=== PATIENT | female | born 1965 ===

== ENCOUNTER 2021-10-05 03:09 | Day surgery (SDC) | payer BC, SELFPAY ==
[2021-09-25 14:04] VITALS: BMI 32.8
[2021-10-05 11:30] VITALS: BP 125/73; PULSE 84; RESP 18; TEMP 37.6; O2SAT 99; BMI 32.7
--- NOTE | 2021-10-05 11:37 | P.PNAN_ITS ---
Anes - Initial Pre Proc Eval Procedure: Operation Date: 10/05/21 13:30 Proposed Procedures p Screening Colonoscopy - Olaf Coombs MD Date/Time: 10/05/21 11:37 Surgeon: Olaf Coombs MD Pre Op Diagnosis: neoplasm screening Patient Data Age: 56 Gender: F Height: 1.66 m Weight: 91 kg Allergies Allergy/AdvReac Type Severity Reaction Status Date / Time venom-wasp Allergy Unknown hornet Verified 09/25/21 13:59 stings acetaminophen [From Vicodin] AdvReac Mild Agitated Verified 09/25/21 14:00 hydrocodone [From Vicodin] AdvReac Mild Agitated Verified 09/25/21 14:00 Home Medications Medication Instructions Recorded Confirmed Type eye lubricant combination no.1 1 drp OPHTHALMIC (EYE) DAILY 09/25/21 09/25/21 History [FreshKote] gzehqjuc-rnn-jjif-vitamin K [Adult 1 tablet PO DAILY 09/25/21 09/25/21 History Multivitamin with Iron] omeprazole 20 mg PO DAILY 09/25/21 09/25/21 History timolol maleate 1 drp OPHTHALMIC (EYE) DAILY 09/25/21 09/25/21 History travoprost (benzalkonium) 1 drp OPHTHALMIC (EYE) DAILY 09/25/21 09/25/21 History [Travatan (with benzalkonium)] Patient hx anesthesia problems: none Family hx anesthesia problems: none Results Review: All pre-operative results and documents have been reviewed as part of the pre-operative evaluation. [facility] Past Medical History Medical History (Updated 10/05/21 @ 11:38 by Tomi Almendarez MD) Dysphagia GERD (gastroesophageal reflux disease) Obesity Social History Social History Smoking status: Never smoker Alcohol intake: never Substance use: never Substance use type: does not use Living arrangements: with family Spiritual care concerns: No Anes - Eval Final PreProcedure Day of Procedure 10/05/21 11:37 Patient weight: obese Heart: regular rate and rhythm Lungs: clear to auscultation Airway: Mallampati scale class II Neurological: alert and oriented Last oral intake: >/= 8 hours ASA classification: II Emergent: no Anesthetic plan: proceed Anesthesia type and monitoring: general GIVS and standard monitoring Results Review: All pre-operative results and documents have been reviewed as part of the pre-operative evaluation. Informed Consent: The patient's anesthetic plan and its attendant risks and benefits were discussed with the patient/family/POA. Questions were solicited and answers provided to the satisfaction of the patient/family/POA.
[2021-10-05] MEDS: LACTATED RINGERS 1,000 ML 150 ML IV CONT (11:55)
--- NOTE | 2021-10-05 11:59 | PM.HPGS ---
History of Present Illness History of Present Illness Consent: Risks, benefits, and alternatives have been discussed and questions answered. Patient agrees to proceed with procedure. Chief complaint: neoplasm screening Narrative: Divya Szymanski is a 56 year old female here for first screening colonoscopy Review of Systems Constitutional: Constitutional: Denies headache(s) and Denies weakness Eyes: Eyes: Denies blurry vision ENT: Reports Normal hearing present, Denies headache(s) and Denies neck pain Cardiovascular: Cardiovascular: Denies chest pain and Denies dyspnea Respiratory: Respiratory: Denies dyspnea Gastrointestinal: Gastrointestinal: Reports no additional gastrointestinal complaints Genitourinary: Genitourinary: Denies dysuria Musculoskeletal: Musculoskeletal: Denies neck pain Integumentary/Breasts: Skin/Breast: Denies dry skin Neurologic: Reports Normal hearing present, Denies headache(s) and Denies weakness Psychiatric: Psychiatric: Denies anxiety Endocrine: Endocrine: Denies change in body appearance Hematologic/Lymphatic: Hematologic/Lymphatic: Denies easy bleeding Allergic/Immunologic: Allergic/Immunologic: Denies urticaria PMF Past Medical History Medical History (Updated 10/05/21 @ 12:00 by Olaf Coombs MD) Colon cancer screening Dysphagia GERD (gastroesophageal reflux disease) Obesity Social History Social History Smoking status: Never smoker Alcohol intake: never Substance use: never Substance use type: does not use Living arrangements: with family Spiritual care concerns: No Meds Home Medications and Allergies Home Medications Medication Instructions Recorded Confirmed Type eye lubricant combination no.1 1 drp OPHTHALMIC (EYE) DAILY 09/25/21 10/05/21 History [FreshKote] erjdjfkn-beg-qtwi-vitamin K [Adult 1 tablet PO DAILY 09/25/21 10/05/21 History Multivitamin with Iron] omeprazole 20 mg PO DAILY 09/25/21 10/05/21 History timolol maleate 1 drp OPHTHALMIC (EYE) DAILY 09/25/21 10/05/21 History travoprost (benzalkonium) 1 drp OPHTHALMIC (EYE) DAILY 09/25/21 10/05/21 History [Travatan (with benzalkonium)] Allergies Allergy/AdvReac Type Severity Reaction Status Date / Time venom-wasp Allergy Unknown hornet Verified 10/05/21 11:43 stings acetaminophen [From Vicodin] AdvReac Mild Agitated Verified 10/05/21 11:43 hydrocodone [From Vicodin] AdvReac Mild Agitated Verified 10/05/21 11:43 Vital Signs Vital Signs - 24 hr 10/05/21 11:30 Temperature 99.7 F H Pulse Rate 84 Respiratory Rate 18 Blood Pressure 125/73 Pulse Oximetry 99 Exam Const: General: comfortable and no acute distress HENMT: General nose exam: Normal nares present Eyes: General: appearance normal, both eyes and all related structures Neck: Neck: no JVD Resp: Auscultation: clear to auscultation bilaterally Cardio: Rate: regular rate Rhythm: regular rhythm GI: Inspection: non-distended GI Palp: Yes Soft to palpation Skin: General skin exam: normal color Neuro: General: gait normal Speech: normal speech Extrem: General: normal to inspection Psych: Mental Status: mental status grossly normal Assessment and Plan Assessment and plan (1) Colon cancer screening: Code(s): Z12.11 - Encounter for screening for malignant neoplasm of colon Status: Acute Assessment and Plan: colonoscopy
[2021-10-05 12:16] VITALS: BP 124/73; PULSE 78; RESP 13; O2SAT 99
[2021-10-05 12:26] VITALS: BP 115/71; PULSE 77; RESP 16; O2SAT 99
[2021-10-05 12:36] VITALS: BP 112/79; PULSE 76; RESP 16; O2SAT 100
== END 2021-10-05 12:41 | disposition home or self-care (01) ==
PROVIDERS: PCP Registered Nurse; Visit Provider Internal Medicine Gastroenterology
PROC: 0DJD8ZZ Inspection of Lower Intestinal Tract, Via Natural or Artificial Opening Endoscopic (ICD-10-PCS; CPT 45378; principal; 2021-10-05 13:30)
DX: Z12.11 Encounter for screening for malignant neoplasm of colon (principal); K57.30 Diverticulosis of large intestine without perforation or abscess without bleeding; K64.8 Other hemorrhoids; R13.10 Dysphagia, unspecified; K21.9 Gastro-esophageal reflux disease without esophagitis; E66.9 Obesity, unspecified; Z68.32 Body mass index [BMI] 32.0-32.9, adult
CPT/HCPCS: 45378; J2001; J2704; J7120